=== PATIENT | female | born 1995 | race Caucasian/White ===

== ENCOUNTER 2021-12-27 19:05 | Inpatient (IN) | payer OTHER ==
[2021-12-27 20:42] LABS: HEMOGLOBIN 9.2 gm/dl (12.3-15.3); RED BLOOD COUNT 3.95 M/UL (4.00-5.10); WHITE BLOOD COUNT 11.3 K/UL (4.5-11.0)
[2021-12-28] MEDS ORDERED: DOCUSATE SODIU250 MG PO (00:47)
[2021-12-28] MEDS ORDERED: IBUPROFEN600 MG PO (00:47)
[2021-12-29 07:31] LABS: HEMOGLOBIN 8.2 gm/dl (12.3-15.3)
== END 2021-12-29 11:20 | disposition home or self-care (01) | DRG 807 ==
LOC: GENOP 19:05 → OB 20:35
PROVIDERS: ADMIT Obstetrics & Gynecology
PROC: 10E0XZZ Delivery of Products of Conception, External Approach (ICD-10-PCS; principal; 2021-12-28)
PROC: 4A1HXCZ Monitoring of Products of Conception, Cardiac Rate, External Approach (ICD-10-PCS; 2021-12-28)
PROC: 3E0234Z Introduction of Serum, Toxoid and Vaccine into Muscle, Percutaneous Approach (ICD-10-PCS; 2021-12-28)
DX: O80 Encounter for full-term uncomplicated delivery (principal); Z37.0 Single live birth; Z3A.38 38 weeks gestation of pregnancy; Z88.8 Allergy status to other drugs, medicaments and biological substances; Z20.822 Contact with and (suspected) exposure to COVID-19; Z23 Encounter for immunization
CPT/HCPCS: 36415; 85014; 85018; 85025; 90715; J2590; J7120; U0002